=== PATIENT | male | born 1955 | race Caucasian/White ===

== ENCOUNTER 2020-03-03 21:31 | Emergency (ER) | payer OTHER ==
[~2020-03-03] VITALS: Ht 170.2 cm; Wt 98.0 kg
[~2020-03-03 21:31] MED LIST: ACET-787 PO; CIPR500T4 PO; IBUP-2213 PO; INSULIN SUBQ; METR250T2 PO
[2020-03-03 21:35] VITALS: BP 172/102
--- NOTE | 2020-03-03 21:40 | NUR ---
PT AMBULATED TO BED 4 WITH STEADY GAIT.
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
[2020-03-03] MEDS ORDERED: FLUORESCEIN OPTH STRIP 1 MG OP ONE (21:50)
[2020-03-03] MEDS ORDERED: TETRACAINE HCL/PF 0.5% OPTH 4 ML BTL OP ONE (21:50)
--- NOTE | 2020-03-03 21:51 | NUR ---
md zaidi at bedside
--- NOTE | 2020-03-03 22:10 | NUR ---
VISUAL ACUITY TEST PERFORMED
[2020-03-03 22:20] VITALS: BP 172/102
== END 2020-03-03 22:20 | disposition home or self-care (01) ==
LOC: MED 21:31
DX: S05.12XA Contusion of eyeball and orbital tissues, left eye, initial encounter (principal); E11.9 Type 2 diabetes mellitus without complications; I10 Essential (primary) hypertension; Z98.890 Other specified postprocedural states; Z79.4 Long term (current) use of insulin; Z88.5 Allergy status to narcotic agent; Z79.899 Other long term (current) drug therapy; W22.8XXA Striking against or struck by other objects, initial encounter; Y93.89 Activity, other specified; Y92.89 Other specified places as the place of occurrence of the external cause; Y99.8 Other external cause status
CPT/HCPCS: 99283